=== PATIENT | female | born 1950 | race Caucasian/White ===

== ENCOUNTER → 2020-09-09 | Outpatient (CLI) | payer MEDICARE ==
--- NOTE | 2020-09-09 16:47 | RAD ---
XR LUMBAR SPINE 2-3V 09/09/2020 11:25 AM INDICATION: Low back pain COMPARISON: None available. TECHNIQUE: 3 views of the lumbar spine provided FINDINGS/ IMPRESSION: 1Spinal augmentation changes are identified at L1. There is focal sclerosis involving the superior en dplate of L4 without significant height loss. Minimal concavity the superior endplate of T12 without definite fracture line. Further characterization with MR lumbar spine could be of benefit.. Dextrocon vex scoliosis centered at L2-L3. There is minimal retrolisthesis of L2 on L3 measuring 4 mm. Electronically signed by: Roma Martines MD (09/09/2020 4:44 PM) [id number]
== END ==
LOC: DXRAD 11:02
PROVIDERS: ATTEND Internal Medicine
DX: M43.16 Spondylolisthesis, lumbar region (principal); M41.86 Other forms of scoliosis, lumbar region
CPT/HCPCS: 72100